=== PATIENT | male | born 1990 | race African-American/Black ===

== ENCOUNTER 2016-09-06 16:32 | Emergency (ER) | payer MEDICAID ==
[~2016-09-06] VITALS: Ht 182.9 cm; Wt 86.0 kg
[2016-09-06 18:26] VITALS: BP 111/60
[2016-09-06] MEDS ORDERED: ONDANSETRON 4MG ODT PO STA (18:37)
[2016-09-06 19:08] LABS: BASOPHILS % 0.8 % (0.0-2.0); EOSINOPHILS % 0.3 % (0.0-5.0); HEMATOCRIT. 45.2 % (42.0-52.0); MEAN CORPUSCULAR HEMOGLOBIN 28.3 pg (28.0-32.0); MEAN CORPUSCULAR HGB CONC 33.1 g/dL (31.0-37.0); MEAN CORPUSCULAR VOLUME 85.6 fL (80.0-94.0); MEAN PLATELET VOLUME 9.3 fl (7.4-10.4); MONOCYTES % 6.6 % (2.0-8.0); NEUTROPHILS % 65.3 % (40.0-76.0); PLATELET 177 x1000/uL (130-400); RED BLOOD CELL COUNT 5.28 mill/uL (4.7-6.1); RED CELL DISTRIBUTION WIDTH 15.4 % (11.6-14.6); WHITE BLOOD COUNT 8.2 x1000/uL (4.5-11.0)
[2016-09-06 19:11] LABS: CHLORIDE 104 mEq/L (98-107); INDEX HEMOLYSI 1 (1-3); INDEX ICTERIC 1 (1-4); INDEX LIPEMIC 1 (1-3)
[2016-09-06 19:20] LABS: ALANINE AMINOTRANSFERASE 20 IU/L (13-61); ANION GAP 13; CALCIUM 9.3 mg/dL (8.5-10.1); CARBON DIOXIDE 30 mEq/L (21-32); UREA NITROGEN BLOOD 13 mg/dL (7-21); eGFR > 60 mL/min (>60)
== END 2016-09-06 21:05 | disposition home or self-care (01) ==
LOC: ER 20:42
DX: B34.9 Viral infection, unspecified (principal); F12.10 Cannabis abuse, uncomplicated
CPT/HCPCS: 36415; 71010; 80053; 85025; 99285; Q0162

== ENCOUNTER 2016-12-02 13:10 | Emergency (ER) | payer MEDICAID ==
[~2016-12-02] VITALS: Ht 182.9 cm; Wt 80.0 kg
[2016-12-02] MEDS ORDERED: LORAZEPAM 1MG TABLET PO ONE (15:15)
[2016-12-02 15:37] LABS: BASOPHILS % 0.7 % (0.0-2.0); HEMATOCRIT. 42.5 % (42.0-52.0); HEMOGLOBIN. 14.3 g/dL (14.0-18.0); MEAN CORPUSCULAR HEMOGLOBIN 28.7 pg (28.0-32.0); MEAN CORPUSCULAR VOLUME 85.4 fL (80.0-94.0); MEAN PLATELET VOLUME 9.3 fl (7.4-10.4); MONOCYTES % 8.4 % (2.0-8.0); NEUTROPHILS % 58.9 % (40.0-76.0); PLATELET 159 x1000/uL (130-400); RED BLOOD CELL COUNT 4.97 mill/uL (4.7-6.1); RED CELL DISTRIBUTION WIDTH 14.6 % (11.6-14.6)
[2016-12-02 15:41] LABS: CHLORIDE 108 mEq/L (98-107)
[2016-12-02 15:46] LABS: CARBON DIOXIDE 30 mEq/L (21-32)
[2016-12-02 16:27] VITALS: BP 125/73
== END 2016-12-02 16:28 | disposition home or self-care (01) ==
LOC: ER 15:23
DX: F41.9 Anxiety disorder, unspecified (principal); F32.9 Major depressive disorder, single episode, unspecified; R53.1 Weakness; F17.200 Nicotine dependence, unspecified, uncomplicated
CPT/HCPCS: 36415; 80053; 85025; 99284

== ENCOUNTER 2017-01-13 16:23 | Emergency (ER) | payer MEDICAID ==
[~2017-01-13] VITALS: Ht 182.9 cm; Wt 86.0 kg
[2017-01-13] MEDS ORDERED: ALBUTEROL (0.083%) 2.5MG/3ML NEB HHN STA (23:03)
[2017-01-13] MEDS ORDERED: KETOROLAC 60MG/2ML VIAL IM ONE (23:15)
[2017-01-14 01:50] VITALS: BP 128/83
== END 2017-01-14 01:52 | disposition home or self-care (01) ==
LOC: ER 16:23
DX: S16.1XXA Strain of muscle, fascia and tendon at neck level, initial encounter (principal); S39.012A Strain of muscle, fascia and tendon of lower back, initial encounter; B34.9 Viral infection, unspecified; X58.XXXA Exposure to other specified factors, initial encounter; Y93.89 Activity, other specified; Y92.89 Other specified places as the place of occurrence of the external cause; Y99.8 Other external cause status
CPT/HCPCS: 71010; 96372; 99283; J1885

== ENCOUNTER 2017-01-17 17:54 | Emergency (ER) | payer MEDICAID ==
[~2017-01-17] VITALS: Ht 182.9 cm; Wt 86.0 kg
[2017-01-17] MEDS ORDERED: IBUPROFEN 600MG TABLET PO STA (22:53)
[2017-01-17] MEDS ORDERED: SODIUM CHLORIDE 0.9% 1,000 ML IV ONE (22:53)
[2017-01-17 23:11] LABS: BASOPHILS % 0.9 % (0.0-2.0); EOSINOPHILS % 0.4 % (0.0-5.0); HEMATOCRIT. 45.4 % (42.0-52.0); HEMOGLOBIN. 15.1 g/dL (14.0-18.0); LYMPHOCYTES % 21.2 % (20.0-50.0); MEAN CORPUSCULAR HEMOGLOBIN 28.1 pg (28.0-32.0); MEAN CORPUSCULAR VOLUME 84.6 fL (80.0-94.0); MEAN PLATELET VOLUME 9.4 fl (7.4-10.4); MONOCYTES % 6.3 % (2.0-8.0); NEUTROPHILS % 71.2 % (40.0-76.0); PLATELET 173 x1000/uL (130-400); RED BLOOD CELL COUNT 5.36 mill/uL (4.7-6.1); RED CELL DISTRIBUTION WIDTH 14.6 % (11.6-14.6)
[2017-01-17 23:16] LABS: CHLORIDE 103 mEq/L (98-107)
[2017-01-17 23:20] LABS: CARBON DIOXIDE 31 mEq/L (21-32)
[2017-01-18 00:15] VITALS: BP 128/66
== END 2017-01-18 02:56 | disposition home or self-care (01) ==
LOC: ER 17:56
DX: R51 Headache (principal); F17.200 Nicotine dependence, unspecified, uncomplicated
CPT/HCPCS: 36415; 80053; 85025; 96374; 96376; 99285; J7030; Z7610

== ENCOUNTER 2017-05-11 14:49 | Emergency (ER) | payer MEDICAID ==
[~2017-05-11] VITALS: Ht 182.9 cm; Wt 87.0 kg
[2017-05-11 20:11] VITALS: BP 124/73
== END 2017-05-11 20:16 | disposition home or self-care (01) ==
LOC: ER 17:49
DX: J06.9 Acute upper respiratory infection, unspecified (principal); F12.10 Cannabis abuse, uncomplicated; F17.200 Nicotine dependence, unspecified, uncomplicated
CPT/HCPCS: 99283; Z7610

== ENCOUNTER 2018-07-15 19:37 | Emergency (ER) | payer SELFPAY ==
[~2018-07-15] VITALS: Ht 185.4 cm; Wt 87.4 kg
[2018-07-15 23:30] VITALS: BP 130/84
[2018-07-16] MEDS ORDERED: ACETAMINOPHEN 325MG TABLET PO ONE (00:30)
[2018-07-16 00:50] LABS: BASOPHILS % 1.3 % (0.0-2.0); EOSINOPHILS % 1.3 % (0.0-5.0); HEMATOCRIT. 46.3 % (42.0-52.0); HEMOGLOBIN. 15.6 g/dL (14.0-18.0); MEAN CORPUSCULAR VOLUME 86.1 fL (80.0-94.0); MONOCYTES % 7.7 % (2.0-8.0); NEUTROPHILS % 58.7 % (40.0-76.0); PLATELET 198 x1000/uL (130-400); RED BLOOD CELL COUNT 5.37 mill/uL (4.7-6.1); RED CELL DISTRIBUTION WIDTH 13.6 % (11.6-14.6)
[2018-07-16 00:55] LABS: CHLORIDE 108 mEq/L (98-107)
[2018-07-16] MEDS ORDERED: IOHEXOL-300 100 ML BOTTLE ONE (01:35)
== END 2018-07-16 02:58 | disposition home or self-care (01) ==
LOC: ER 19:37
DX: R51 Headache (principal); R10.31 Right lower quadrant pain; M25.551 Pain in right hip; F91.8 Other conduct disorders; V47.5XXA Car driver injured in collision with fixed or stationary object in traffic accident, initial encounter; Y93.89 Activity, other specified; Y92.410 Unspecified street and highway as the place of occurrence of the external cause; F17.210 Nicotine dependence, cigarettes, uncomplicated
CPT/HCPCS: 36415; 70450; 72170; 74177; 80053; 85025; 99284; Q9967; Z7610

== ENCOUNTER 2018-12-31 18:48 | Emergency (ER) | payer SELFPAY ==
[~2018-12-31] VITALS: Ht 185.4 cm; Wt 82.9 kg
[2018-12-31] MEDS ORDERED: KETOROLAC 60MG/2ML VIAL IM ONE (20:30)
[2018-12-31 20:50] VITALS: BP 120/75
== END 2018-12-31 20:57 | disposition home or self-care (01) ==
LOC: ER 18:48
DX: M62.830 Muscle spasm of back (principal)
CPT/HCPCS: 96372; 99283; J1885

== ENCOUNTER 2019-05-27 12:44 | Emergency (ER) | payer SELFPAY ==
[~2019-05-27] VITALS: Ht 182.9 cm; Wt 86.0 kg
[2019-05-27 13:12] VITALS: BP 117/64
== END 2019-05-27 20:04 | disposition left against medical advice (07) ==
LOC: ER 13:26
DX: Z53.21 Procedure and treatment not carried out due to patient leaving prior to being seen by health care provider (principal)

== ENCOUNTER 2019-06-12 16:12 | Emergency (ER) | payer OTHER ==
[~2019-06-12] VITALS: Ht 185.4 cm; Wt 98.0 kg
[2019-06-12 20:12] VITALS: BP 132/74
== END 2019-06-12 18:12 | disposition home or self-care (01) ==
LOC: ER 16:12
DX: S69.92XA Unspecified injury of left wrist, hand and finger(s), initial encounter (principal); V49.9XXA Car occupant (driver) (passenger) injured in unspecified traffic accident, initial encounter; Y93.9 Activity, unspecified; Y92.410 Unspecified street and highway as the place of occurrence of the external cause
CPT/HCPCS: 29125; 73110; 99283

== ENCOUNTER 2022-01-01 00:05 | Emergency (ER) | payer OTHER ==
[~2022-01-01] VITALS: Ht 182.9 cm; Wt 91.0 kg
[2022-01-01] MEDS ORDERED: DOXY100T2 PO (06:35)
[2022-01-01] MEDS ORDERED: DOXYCYCLINE HYCLATE 100MG CAPSULE PO ONE (06:45)
[2022-01-01] MEDS ORDERED: CEFTRIAXONE SODIUM 1 G/VIAL IM ONE (06:45)
[2022-01-01] MEDS ORDERED: LIDOCAINE HCL 1% 20ML VIAL (Pyxis) INJ INFIL ONE (07:00)
[2022-01-01 07:08] LABS: CLARITY URINE CLOUDY (CLEAR); COLOR URINE DARK YELLOW (YELLOW); KETONES URINE NEGATIVE (NEGATIVE); LEUKOCYTE ESTERASE URINE 2+ (NEGATIVE); NITRITE URINE NEGATIVE (NEGATIVE); OCCULT BLOOD URINE NEGATIVE (NEGATIVE); PH URINE 5.5 (4.5-8.0); PROTEIN URINE TRACE (NEGATIVE); SPECIFIC GRAVITY URINE 1.034 (1.005-1.030); UROBILINOGEN URINE 0.2 E.U./dL (0.2-1.0)
[2022-01-01] MEDS ORDERED: LIDOCAINE HCL 1% 30ML VIAL (10MG/ML) INFIL ONE (07:15)
[2022-01-01 07:20] VITALS: BP 125/64
[2022-01-04 04:09] LABS: NEISSERIA GONORRHOEAE NAA Positive (Negative)
== END 2022-01-01 07:23 | disposition home or self-care (01) ==
LOC: ER 00:05
DX: A56.01 Chlamydial cystitis and urethritis (principal); A54.01 Gonococcal cystitis and urethritis, unspecified
CPT/HCPCS: 81003; 87086; 87491; 87591; 96372; 99283; J0696; J3490

== ENCOUNTER 2022-03-13 20:59 | Emergency (ER) | payer MEDICAID, OTHER ==
[~2022-03-13] VITALS: Ht 182.9 cm; Wt 93.9 kg
[~2022-03-13 20:59] MED LIST: DOXY100T2 PO
[2022-03-13 21:05] VITALS: BP 126/74
[2022-03-13] MEDS ORDERED: DOXYCYCLINE HYCLATE 100MG CAPSULE PO ONE (22:30)
[2022-03-13] MEDS ORDERED: CEFTRIAXONE SODIUM 500 MG/VIAL IM ONE (22:30)
[2022-03-13] MEDS ORDERED: DOXY100T2 MT (22:31)
== END 2022-03-13 23:09 | disposition home or self-care (01) ==
LOC: ER 20:59
DX: R30.0 Dysuria (principal); R36.9 Urethral discharge, unspecified
CPT/HCPCS: 96372; 99283; J0696

== ENCOUNTER 2022-07-08 15:45 | Emergency (ER) | payer MEDICAID ==
[~2022-07-08] VITALS: Ht 182.9 cm; Wt 91.0 kg
[~2022-07-08 15:45] MED LIST changes: +DOXY100T2 MT
[2022-07-08] MEDS ORDERED: ACETAMINOPHEN 325MG TABLET PO ONE (16:45)
[2022-07-08] MEDS ORDERED: IBUPROFEN 400MG TABLET PO ONE (16:45)
[2022-07-08 18:30] VITALS: BP 143/47
[2022-07-08] MEDS ORDERED: KETOROLAC 60MG/2ML VIAL IM ONE (18:30)
== END 2022-07-08 18:34 | disposition home or self-care (01) ==
LOC: ER 15:45
DX: M25.512 Pain in left shoulder (principal); V49.9XXA Car occupant (driver) (passenger) injured in unspecified traffic accident, initial encounter; Y93.89 Activity, other specified; Y92.89 Other specified places as the place of occurrence of the external cause; Y99.8 Other external cause status
CPT/HCPCS: 73000; 73030; 96372; 99284; J1885